=== PATIENT | female | born 1955 | race Caucasian/White ===

== ENCOUNTER 2018-07-24 05:10 | Inpatient (IN) ==
--- NOTE | 2018-06-23 16:22 | PAT Medication Instructions ---
Medication Instructions Date of Service June 23, 2018 Home Medications aspirin [Aspir-81] 81 mg PO QAM citalopram 20 mg PO QAM diclofenac sodium 50 mg PO TID PRN gabapentin 400 mg PO TID rosuvastatin 20 mg PO QPM ASK your surgeon for instructions diclofenac sodium 50 mg PO TID PRN Take morning of surgery With a small sip of water, OTHERWISE NOTHING TO EAT OR DRINK AFTER MIDNIGHT: aspirin [Aspir-81] 81 mg PO QAM citalopram 20 mg PO QAM gabapentin 400 mg PO TID Take evening before surgery gabapentin 400 mg PO TID rosuvastatin 20 mg PO QPM Other Notes If you have any questions please call us at [phone] or [phone] or [phone] or [phone]
--- NOTE | 2018-06-24 12:57 | Anesthesiology Consultation ---
Date of Service June 24, 2018 Assessment & Plan (1) Encounter for pre-operative examination: WITH BACK SURGERY-03/11/18 @ [facility]- RESPIRATORY AND CARDIAC ARREST DURING TRANSFER TO PACU. PER RECORDS, "cardiac arrest with return of spontaneous circulation status post anesthesia. Likely respiratory arrest with resulting cardiac arrest." Troponin x1 negative. CTA showed no evidence of acute PE. Echo within normal limits. " Etiology of cardiac arrest is unspecified. However it is likely respiratory arrest that led to cardiac arrest. Patient may have been extubated too soon in the setting of recent lumbar decompression and fusion at level of L5-S1." PATIENT HAD SUBSEQUENT CARDIAC EVAL 03/24/18: "[Respiratory and cardiac arrest] happened in the setting of immediately postop lumbar spine surgery when she was being taken back to the recovery area. In review of the records her EKG is normal. She also had a normal echo. My suspicion she became hypoxic which caused a severe bradycardia... This was not a primary cardiac event. I think no further cardiac evaluation is required." Chart Review Chart Review: Acceptable Risk for Surgery and Patient seen in Pre Admission Testing Teaching & Discussion Instructed NPO after midnight before surgery, except medications with 15 cc of water. Medication instructions provided according to the PAT guidelines. History Surgery Operation Date: 07/24/18 07:00 Proposed Procedures p Right Total Knee Arthroplasty - Rudi Calderon MD Height/Weight Height: 5 ft 3 in Weight: 99.3 kg Allergies Allergy/AdvReac Type Severity Reaction Status Date / Time No Known Allergies Allergy Verified 06/16/18 13:16 Medications Home Medications Medication Instructions Recorded Confirmed Last Taken aspirin [Aspir-81] 81 mg PO QAM 06/16/18 06/16/18 Unknown citalopram 20 mg PO QAM 06/16/18 06/16/18 Unknown diclofenac sodium 50 mg PO TID PRN 06/16/18 06/16/18 Unknown gabapentin 400 mg PO TID 06/16/18 06/16/18 Unknown rosuvastatin 20 mg PO QPM 06/16/18 06/16/18 Unknown Past Medical History Medical History Anxiety Depression GERD (gastroesophageal reflux disease) Hyperlipidemia Migraine HX Osteoarthritis Pulmonary embolism [id number] ON THINNERS PERIOD OF TIME-NO ISSUES SINCE Exercise / Class Metabolic Activity II 4-5 Yardwork/Stairs/Walk up hill (Denies CP or SOB with stairs, does daily) Past Family History Family History Sister Family history of diabetes mellitus Brother Family history of diabetes mellitus Sister Family history of diabetes mellitus Sister Family history of diabetes mellitus Past Surgical History Surgical History Fusion of spine LUMBAR H/O cervical spine surgery X 2 H/O hand surgery RIGHT THUMB X 2 History of anesthesia reaction WITH BACK SURGERY-03/11/18 [facility]- RESPIRATORY AND CARDIAC ARREST DURING TRANSFER TO PACU. History of carpal tunnel release History of section X 2 History of cholecystectomy History of laparoscopy S/P right knee arthroscopy Past Anesthesia History No Family Hx of Anesthesia Complications and Other WITH BACK SURGERY-03/11/18 [facility]- RESPIRATORY AND CARDIAC ARREST DURING TRANSFER TO PACU. PER RECORDS, " cardiac arrest with return of spontaneous circulation status post anesthesia. Likely respiratory arrest with resulting cardiac arrest." Troponin x1 negative. CTA showed no evidence of acute PE. Echo within normal limits. " Etiology of cardiac arrest is unspecified. However it is likely respiratory arrest that led to cardiac arrest. Patient may have been extubated too soon in the setting of recent lumbar decompression and fusion at level of L5-S1." PATIENT HAD SUBSEQUENT CARDIAC EVAL 03/24/18: "[Respiratory and cardiac arrest] happened in the setting of immediately postop lumbar spine surgery when she was being taken back to the recovery area. In review of the records her EKG is normal. She also had a normal echo. My suspicion she became hypoxic which caused a severe bradycardia... This was not a primary cardiac event. I think no further cardiac evaluation is required." 2013 lumbar sx @ [facility] = MAC 3, ETT 7.5, grade view I. Noted "2 hand mask needed." History of PONV No Hx of PONV and No Hx of Motion Sickness Social History Smoking Status: Current every day smoker tobacco type: cigarettes Smoking cigarettes per day: 1 PACK PER 1.5 wks Do You Dip or Chew Tobacco: No Hx Alcohol Use: No Hx Substance Use: No substance use type: does not use Review of Systems Pt denies any recent chest pain, shortness of breath, palpitations, cough, fever or URI. Physical Exam Vital Signs BP: 131/78 P: 79bpm SPO2: 95% RA T: 98.1 F R: 16 Constitutional + obese ENMT Mouth: no chipped teeth and no loose teeth Thyromental Distance: < 3.5 Finger Breadths (3) Mallampati Class: I Missing all top teeth. Missing all bottom molars. Neck + short neck; neck extension not limited Respiratory normal respiratory effort Auscultation: lungs clear to auscultation bilaterally Cardiovascular Rate/Rhythm: regular rate and regular rhythm Heart Sounds: + murmur (I/ systolic) Vessels: no carotid bruit Extremities: no edema Testing Electrocardiogram Date: 06/24/18 Findings: + NSR @ (76) Chest X-Ray Date: 06/24/18 Findings: + NAD Echocardiogram Date: 03/12/18 EF: 60% Laboratory Results 06/24/18 14:11 06/24/18 14:11 PT 10.9 Seconds (9.0-12.0) 06/24/18 14:11 INR 1.1 (0.9-1.1) 06/24/18 14:11 APTT 29.6 Seconds (21.0-31.0) 06/24/18 14:11 6.2 % (4.5-5.6) H 06/24/18 14:11 Yellow 06/24/18 14:11 Clear (Clear) 06/24/18 14:11 5.0 (4.5-7.5) 06/24/18 14:11 Ur Specific [place] 1.029 (1.000-1.030) 06/24/18 14:11 Negative (Negative) 06/24/18 14:11 Negative (Negative) 06/24/18 14:11 Negative (Negative) 06/24/18 14:11 Negative (Negative) 06/24/18 14:11 Ur Leukocyte Esterase Negative (Negative) 06/24/18 14:11 Blood Type O Negative 06/24/18 14:11 Antibody Screen NEGATIVE 06/24/18 14:11 Headers for A1C and some UA results not pulling into document. A1C 6.2%. UA negative for bacteria.
[2018-06-24 14:42] LABS: Appearance Urine Clear (Clear); Basophils # (auto) 0.04 K/uL (0-0.2); Basophils % (auto) 0.4 %; Bilirubin Urine Negative (Negative); Blood Urine Negative (Negative); Color Urine Yellow; Eosinophils # (auto) 0.12 K/uL (0-0.5); Eosinophils % (auto) 1.1 %; Glucose Urine UA Negative (Negative); Hematocrit (blood only) 36.8 % (37-47); Hemoglobin 12.2 g/dL (12.0-16.0); Immature Granulocytes # (auto) 0.03 K/uL (0.00-0.02); Immature Granulocytes % (auto) 0.3 %; Ketones Urine Negative (Negative); Leukocyte Esterase Urine Negative (Negative); Lymphocytes # (auto) 2.81 K/uL (1.2-3.4); Lymphocytes % (auto) 26.6 %; Mean Corpuscular Hgb Conc 33.2 g/dL (32-36); Mean Corpuscular Volume 80.2 fL (80-100); Mean Platelet Volume 9.4 fL (7.4-10.4); Monocytes # (auto) 0.47 K/uL (0.11-0.59); Monocytes % (auto) 4.5 %; Neutrophils # (auto) 7.09 K/uL (1.4-6.5); Neutrophils % (auto) 67.1 %; Nitrite Urine Negative (Negative); Platelet Count 424 K/uL (130-400); Protein Urine Negative (Negative); RDW Coefficient of Variation 15.2 % (11.5-14.5); RDW Standard Deviation 44.6 fL (36.4-46.3); Red Blood Count 4.59 M/uL (4.2-5.4); Specific Gravity Urine 1.029 (1.000-1.030); Urobilinogen Urine Negative (Negative); White Blood Count 10.56 K/uL (4.8-10.8)
--- NOTE | 2018-06-24 14:50 | XRay Report ---
XR chest Pre-admission PA/Lat CLINICAL HISTORY: 62 years-old Female presenting with preoperative assessment. TECHNIQUE: PA and lateral views of the chest were obtained. COMPARISON: 07/12/2013. FINDINGS: Cardiomediastinal silhouette normal. Lungs and pleural spaces clear. Anterior cervical fusion hardwar e. Cholecystectomy clips noted. IMPRESSION: 1. No acute cardiopulmonary disease. Electronically signed by: Rudi Calero M.D. 06/24/2018 2:49 PM
[2018-06-24 14:55] LABS: INR 1.1 (0.9-1.1); Partial Thromboplastin Ratio 1.1; Partial Thromboplastin Time 29.6 Seconds (21.0-31.0); Prothrombin Time 10.9 Seconds (9.0-12.0)
[2018-06-24 15:03] LABS: Estimated Average Glucose 131 mg/dl; Hemoglobin A1C 6.2 % (4.5-5.6)
[2018-06-24 15:35] LABS: Albumin Level 3.5 gm/dl (3.4-5.0); BUN Creatinine Ratio 24.5 (10-20); Calcium 9.4 mg/dl (8.5-10.1); Creatinine Clr Calc Pharmacy 103.4 ml/min; Est GFR (African American) 111.8; Est GFR (Non-African American) 96.5; Potassium 3.9 mmol/L (3.5-5.1)
--- NOTE | 2018-07-14 13:13 | History & Physical Report ---
Date of Service July 14, 2018 Assessment & Plan (1) Primary localized osteoarthritis of right knee: Treatment options were discussed with the patient. She has failed conservative measures as above. Risks, benefits and alternatives to surgery including but not limited to infection, DVT, pain, stiffness, need for revision surgery, damage to blood vessels, damage to nerves, PE, , were discussed with the patient and they wish to proceed. Insert my surgical risks plan will be for right total knee arthroplasty. She plans on going home and will participate in outpatient physical therapy upon discharge from the hospital. DVT prophylaxis will be aspirin 81 mg twice daily for 30 days postoperatively. All questions were answered and reassurance was given. She will follow-up in the office postoperatively. History of Present Illness Chief Complaint: Right knee pain Primary Care Provider: Alex Negro DO Patient is a 62-year-old female past medical history significant for high cholesterol, anxiety, PE, GERD who presents with a long-standing history of right knee pain. She has tried and failed conservative measures including c ortisone injections, Visco injections, and anti-inflammatory medications.Her pain is starting to interfere with her activities of daily living and she is unable to do think she would like to do. She would like to proceed with right knee replacement. Patient denies headaches, sweats, fevers, chills, double vision, blurred vision, cough, sore throat, dysphagia, chest pain, sob, wheezing, n/v/d/c, numbness, tingling, fatigue, urinary symptoms, mood disorders. ROS positive for Right pain and stiffness. Allergies Allergy/AdvReac Type Severity Reaction Status Date / Time No Known Allergies Allergy Verified 06/16/18 13:16 Home Medications Home Medications Medication Instructions Recorded Confirmed Type aspirin [Aspir-81] 81 mg PO QAM 06/16/18 06/16/18 History citalopram 20 mg PO QAM 06/16/18 06/16/18 History diclofenac sodium 50 mg PO TID PRN 06/16/18 06/16/18 History gabapentin 400 mg PO TID 06/16/18 06/16/18 History rosuvastatin 20 mg PO QPM 06/16/18 06/16/18 History Past Med/Surg History Medical History Anxiety Depression GERD (gastroesophageal reflux disease) Hyperlipidemia Migraine HX Osteoarthritis Pulmonary embolism [id number] ON THINNERS PERIOD OF TIME-NO ISSUES SINCE Surgical History Fusion of spine LUMBAR H/O cervical spine surgery X 2 H/O hand surgery RIGHT THUMB X 2 History of anesthesia reaction WITH BACK SURGERY-03/11/18 [facility]- RESPIRATORY AND CARDIAC ARREST DURING TRANSFER TO PACU. 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 Beliefs That Will Affect Care: None Current Living Situation: Significant Other Other Information That Helps Us Care for You: No Feels Safe at Home: Yes Safety Concerns: Feels Safe At This Time Smoking Status: Current every day smoker Tobacco Type: cigarettes Cigarettes Per Day: 1 PACK PER 1.5 wks Do You Dip or Chew Tobacco: No Second Hand Exposure: No Hx Alcohol Use: No Hx Substance Use: No Review of Systems All systems reviewed & are unremarkable except as noted in HPI & below Physical Exam Constitutional: well developed and well nourished; no acute distress Eyes: PERRL, conjunctivae normal, anicteric sclerae ENMT: external ear and nose normal, oropharynx normal Neck: trachea midline, no thyromegaly Respiratory: normal respiratory effort, lungs clear to auscultation Cardiovascular: RRR, no murmur, no edema Musculoskeletal: My ROS right knee is diffusely tender. There is a moderate effusion. She is stable to valgus varus stress test. Nigel's is positive. Range of motion is 0 to 110 degrees. Skin: no rashes, warm and dry Neurologic: patellar DTR's 2+ bilat, sensation intact Psychiatric: A+Ox3, euthymic affect Results & Data Laboratory Results Lab Results 06/24/18 06/24/18 06/24/18 Range/Units 14:11 14:11 14:11 WBC 10.56 (4.8-10.8) K/uL RBC 4.59 (4.2-5.4) M/uL Hgb 12.2 (12.0-16.0) g/dL Hct 36.8 L (37-47) % MCV 80.2 (80-100) fL MCH 26.6 (25-34) pg MCHC 33.2 (32-36) g/dL RDW Std Deviation 44.6 (36.4-46.3) fL RDW Coeff of Yari 15.2 H (11.5-14.5) % Plt Count 424 H (130-400) K/uL MPV 9.4 (7.4-10.4) fL Immature Gran % (Auto) 0.3 % Neut % (Auto) 67.1 % Lymph % (Auto) 26.6 % Karnes % (Auto) 4.5 % Eos % (Auto) 1.1 % Baso % (Auto) 0.4 % Immature Gran # (Auto) 0.03 H (0.00-0.02) K/uL Neut # (Auto) 7.09 H (1.4-6.5) K/uL Lymph # (Auto) 2.81 (1.2-3.4) K/uL Karnes # (Auto) 0.47 (0.11-0.59) K/uL Eos # (Auto) 0.12 (0-0.5) K/uL Baso # (Auto) 0.04 (0-0.2) K/uL PT 10.9 (9.0-12.0) Seconds INR 1.1 (0.9-1.1) APTT 29.6 (21.0-31.0) Seconds PTT Ratio 1.1 Sodium 142 (136-145) mmol/L Potassium 3.9 (3.5-5.1) mmol/L Chloride 108 H (98-107) mmol/L Carbon Dioxide 28 (21-32) mmol/L Anion Gap 6.0 (3-11) BUN 16 (7-18) mg/dl Creatinine 0.65 (0.6-1.2) mg/dl Est Cr Clr Drug Dosing 103.4 ml/min Est GFR ( Amer) 111.8 Est GFR (Non-Af Amer) 96.5 BUN/Creatinine Ratio 24.5 H (10-20) Glucose 119 H (70-99) mg/dl Estimat Average Glucose mg/dl Hemoglobin A1c (4.5-5.6) % Calcium 9.4 (8.5-10.1) mg/dl Albumin 3.5 (3.4-5.0) gm/dl Urine Color Urine Appearance (Clear) Urine pH (4.5-7.5) Ur Specific [place] (1.000-1.030) Urine Protein (Negative) Urine Glucose (UA) (Negative) Urine Ketones (Negative) Urine Blood (Negative) Urine Nitrite (Negative) Urine Bilirubin (Negative) Urine Urobilinogen (Negative) Ur Leukocyte Esterase (Negative) Blood Type Antibody Screen 06/24/18 06/24/18 06/24/18 Range/Units 14:11 14:11 14:11 WBC (4.8-10.8) K/uL RBC (4.2-5.4) M/uL Hgb (12.0-16.0) g/dL Hct (37-47) % MCV (80-100) fL MCH (25-34) pg MCHC (32-36) g/dL RDW Std Deviation (36.4-46.3) fL RDW Coeff of Yari (11.5-14.5) % Plt Count (130-400) K/uL MPV (7.4-10.4) fL Immature Gran % (Auto) % Neut % (Auto) % Lymph % (Auto) % [place] % (Auto) % Eos % (Auto) % Baso % (Auto) % Immature Gran # (Auto) (0.00-0.02) K/uL Neut # (Auto) (1.4-6.5) K/uL Lymph # (Auto) (1.2-3.4) K/uL [place] # (Auto) (0.11-0.59) K/uL Eos # (Auto) (0-0.5) K/uL Baso # (Auto) (0-0.2) K/uL PT (9.0-12.0) Seconds INR (0.9-1.1) APTT (21.0-31.0) Seconds PTT Ratio Sodium (136-145) mmol/L Potassium (3.5-5.1) mmol/L Chloride (98-107) mmol/L Carbon Dioxide (21-32) mmol/L Anion Gap (3-11) BUN (7-18) mg/dl Creatinine (0.6-1.2) mg/dl Est Cr Clr Drug Dosing ml/min Est GFR ( Amer) Est GFR (Non-Af Amer) BUN/Creatinine Ratio (10-20) Glucose (70-99) mg/dl Estimat Average Glucose 131 mg/dl Hemoglobin A1c 6.2 H (4.5-5.6) % Calcium (8.5-10.1) mg/dl Albumin (3.4-5.0) gm/dl Urine Color Yellow Urine Appearance Clear (Clear) Urine pH 5.0 (4.5-7.5) Ur Specific [place] 1.029 (1.000-1.030) Urine Protein Negative (Negative) Urine Glucose (UA) Negative (Negative) Urine Ketones Negative (Negative) Urine Blood Negative (Negative) Urine Nitrite Negative (Negative) Urine Bilirubin Negative (Negative) Urine Urobilinogen Negative (Negative) Ur Leukocyte Esterase Negative (Negative) Blood Type O Negative Antibody Screen NEGATIVE Diagnostic Findings Right knee: [id number] medial compartment with periarticular osteophyte formation and subchondral sclerosis
[~2018-07-24 05:10] MED LIST: [UNRECOGNIZED DRUG - REMARK] SCH
[2018-07-24] MEDS ORDERED: ROPIVACAINE 0.5% HCL/PF 150 MG, BUPIVACAINE 0.5% MPF 30 ML, EPINEPHrine 30MG/30ML (OR U... INFIL SCH (06:00)
[2018-07-24] MEDS ORDERED: LR 500ML BOLUS, THEN 15ML/HR IV SCH (06:00)
[2018-07-24] MEDS ORDERED: ACETAMINOPHEN 500 MG TAB ONE (06:07)
[2018-07-24] MEDS ORDERED: CeleBREX 200 MG CAP ONE (06:07)
[2018-07-24] MEDS ORDERED: dexAMETHasone 4 MG TAB PO ONE (06:07)
[2018-07-24] MEDS ORDERED: METOCLOPRAMIDE HCL 10 MG TABLET ONE (06:08)
[2018-07-24] MEDS ORDERED: FAMOTIDINE 20 MG TAB ONE (06:08)
[2018-07-24] MEDS ORDERED: CEFAZOLIN 2,000 MG/15 ML IV PUSH IV ONE (06:09)
[2018-07-24] MEDS ORDERED: OXYCODONE HCL 10 MG TABCR (OXYCONTIN) ONE (06:09)
[2018-07-24] MEDS ORDERED: EPINEPHrine INJ 1 MG/ML AMP ONE (06:31)
[2018-07-24] MEDS ORDERED: BUPIVACAINE 0.5 % 5 MG/1 ML PF 10ML VIAL ONE (06:31)
[2018-07-24] MEDS ORDERED: ROPIVACAINE 0.5% 5 MG/ML 30 ML VIAL ONE (06:31)
--- NOTE | 2018-07-24 06:38 | History & Physical Bridge Note ---
Date of Service July 24, 2018 History & Physical Bridge Note I have examined the patient, reviewed the History & Physical and in the interval since the performance of the History & Physical I have noted the following changes of clinical significance: no changes noted
[2018-07-24] MEDS ORDERED: ONDANSETRON INJ 2 MG/ML 2 ML VIAL ONE (06:43)
[2018-07-24] MEDS ORDERED: fentaNYL citrate 100 MCG/2 ML VIAL ONE (06:43)
[2018-07-24] MEDS ORDERED: PROPOFOL IV EMULSION 10 MG/ML 20 ML VIAL IV ONE ×2 (06:43→09:23)
[2018-07-24] MEDS ORDERED: LIDOCAINE 2% 20 MG/ML 5 ML SYR IV ONE (06:43)
[2018-07-24] MEDS ORDERED: DEXAMETHASONE SOD INJ 4 MG/ML VIAL ONE (06:44)
[2018-07-24] MEDS ORDERED: MIDAZOLAM HCL 1 MG/ML 2ML VIAL ONE (06:44)
[2018-07-24] MEDS ORDERED: BACITRACIN INJ 50,000 UNIT VIAL ONE (07:04)
[2018-07-24] MEDS ORDERED: ePHEDrine sulfate 50 MG/ML AMP IV PRN (08:44)
[2018-07-24] MEDS ORDERED: ATROPINE SULFATE 0.1 MG/ML 10ML SYR IV PRN (08:44)
[2018-07-24] MEDS ORDERED: POVIDONE-IODINE 10% OINT 30 GM TUBE EXT SCH (08:45)
--- NOTE | 2018-07-24 09:09 | Operative Report ---
Post Operative Report Pre & Post Diagnosis Operation Date: 07/24/18 07:45 Pre-Op Diagnosis: Osteoarthritis, Right Knee Post-Op Diagnosis: Osteoarthritis, Right Knee Procedure Operation Date: 07/24/18 07:45 Actual Procedures p Right Total Knee Arthroplasty(Right) - Rudi Calderon MD Surgeon Rudi Calderon MD Environmental Health Aide Manolo Aguilar PA-C Estimated Blood Loss 20 Findings Consistent with Post-Op Diagnosis Specimens Bone and tissue Drains 2 Hemovac Anesthesia Type Spinal MAC Complications none Disposition Accompanied Patient To Recovery: No Disposition: Recovery Room Indications The patient is a 62-year-old female long-standing arthritic change of the right knee. She is [id number] in the medial compartment. She is failed conservative measures occluding injection, anti-inflammatories, rehab. She has had persistent effusions in the knee. She previously has had aspiration of the knee and cultures were negative. Failing conservative measures she wishes to proceed with a right total knee arthroplasty. Description of Procedure Risks benefits and alternatives of surgery including but not limited to infection, DVT, pain, stiffness, need for surgery, damage to blood vessels, damage to nerves or risks of anesthesia were discussed with the patient and they wished to proceed. The patient was identified and the laterality was confirmed and marked. They received a preoperative antibiotic as well as a spinal anesthetic and an abductor canal block. A well-padded tourniquet was applied and then the limb was prepped and draped in standard manner with ChloraPrep. The limb was exsanguinated and the tourniquet was inflated. I made a standard anterior incision. I sharply incised the skin then utilized Bovie electrocautery to achieve hemostasis. I made a medial parapatellar arthrotomy and mobilized the patella laterally. There is a fair amount of inflammatory tissue in the suprapatellar pouch that was excised. I did an extensive synovectomy proximally. I then excised the anterior horns of the medial and lateral meniscus as well as the infrapatellar fat pad. I elevated a portion of the MCL off of the tibia. I then pinned into place a patient-matched distal femoral cutting guide and made my distal femoral resection. I then pinned into place the 5 in 1 femoral cutting guide. I made my anterior, posterior and chamfer cuts. I then excised the cruciates and the remaining portions of the menisci. I then pinned into place a patient- matched tibial cutting guide and made my tibial resection. I then pinned into place the tibial plate a utilizing alignment carlos to confirm rotation. I then cut for the post. Utilizing a lamina web solutions architect and I then removed posterior osteophytes off the femur. I then placed a trial femur into position and cut for the trochlear component. I then sequentially trialed to size the polyethylene until there was good soft tissue balancing and range of motion. I then prepared the patella with a freehand cut utilizing sagittal saw. I sized and drilled for the patella. There was good tracking to the patella no lateral release was needed. All the trial components were removed. The deep tissues were anesthetized with an ortho mix solution. Then with Simplex HV with gentamicin cement, I cemented my definitive components. Definitive components, Monterroso and Nephew Danelle 2: Femur 5 Tibia 4 Poly 9 Patella 32 oval A betadine soak was performed. A deep drain was placed. The arthrotomy was closed with interrupted #1 Vicryl suture subcutaneous tissue was closed with interrupted 2-0 Vicryl suture. The skin was closed with with billy. An Acticoat and Bay dressing were placed. Sterile dressings were applied. All needle and sponge counts were correct at the end of the procedure patient was transferred to the PACU in stable condition without apparent complication. The PA-C was necessary for assistance with procedure for assistance in positioning, prepping, draping, retraction and closure. I attest to the content of the Intraoperative Record and any orders documented therein. Any exceptions are noted below.
--- NOTE | 2018-07-24 10:37 | XRay Report ---
RIGHT KNEE 2 VIEWS History: Right total knee arthroplasty. Degenerative arthritis. Postop. FINDINGS: The patient is status post a right total knee arthroplasty. The hardware is intact. No frac ture or dislocation. Skin billy and surgical drains are in place. IMPRESSION: Right total knee arthroplasty. No evidence for hardware complication. Electronically signed by: Cj Tavares M.D. 07/24/2018 10:36 AM
--- NOTE | 2018-07-24 10:49 | Anesthesiology Progress Note ---
Date of Service July 24, 2018 Anesthesia Post Procedure Vital Signs Vital Signs: Temp Pulse Pulse Resp BP Pulse Ox 07/24/18 10:35 36.4 C L 72 15 108/68 96 07/24/18 10:25 83 19 119/68 95 07/24/18 10:15 88 22 123/62 97 07/24/18 10:07 36.0 C L 89 17 110/61 91 07/24/18 05:52 36.8 C 72 18 125/54 L 96 Transfer of Care Handoff Completed per policy Notes Mental Status: alert / awake / arousable Patient Amnestic to Procedure: Yes Nausea / Vomiting: adequately controlled Pain: adequately controlled Airway Patency, RR, SpO2: stable & adequate BP & HR: stable & adequate Hydration State: stable & adequate Neuraxial Anesthesia: was administered and sensory block is resolving Anesthetic Complications: no major complications apparent
[2018-07-24] MEDS ORDERED: NALOXONE HCL 0.4 MG/1 ML VIAL/CARP IV PRN (11:14)
[2018-07-24] MEDS ORDERED: ONDANSETRON INJ 2 MG/ML 2 ML VIAL IV PRN (11:14)
[2018-07-24] MEDS ORDERED: BISACODYL 10 MG SUPP PR PRN (11:14)
[2018-07-24] MEDS ORDERED: MAGNESIUM HYDROXIDE SUSP 30 ML UDC PO PRN (11:14)
[2018-07-24] MEDS: SODIUM CHLORIDE 0.9% 1000ML 1,000 ML IV SCH ×2 (12:41→22:58)
[2018-07-24] MEDS: GABAPENTIN 400 MG CAP PO SCH ×2 (12:41→21:25)
[2018-07-24] MEDS: ACETAMINOPHEN 500 MG TAB PO SCH ×2 (12:41→21:25)
[2018-07-24] MEDS: OXYCODONE HCL IR 5 MG TAB (IMMEDIATE RELEASE) PO PRN ×3 (14:10→22:53)
[2018-07-24] MEDS: CEFAZOLIN 2000MG 2,000 MG/15 ML SYR IV SCH ×2 (17:28→22:55)
[2018-07-24] MEDS: ROSUVASTATIN CALCIUM 20 MG TAB PO SCH (21:25)
[2018-07-24] MEDS: SENNA 8.6 MG TAB PO SCH (21:25)
[2018-07-24] MEDS: DOCUSATE SODIUM 100 MG CAP PO SCH (21:25)
[2018-07-25] MEDS: HYDROmorphone INJ 0.5 MG/0.5 ML SYR IV PRN ×3 (00:31→18:16)
[2018-07-25] MEDS: ACETAMINOPHEN 500 MG TAB PO SCH ×3 (05:17→21:45)
[2018-07-25] MEDS: OXYCODONE HCL IR 5 MG TAB (IMMEDIATE RELEASE) PO PRN ×3 (05:17→15:16)
[2018-07-25 05:29] LABS: Hematocrit (blood only) 32.4 % (37-47); Hemoglobin 10.4 g/dL (12.0-16.0); Mean Corpuscular Hgb Conc 32.1 g/dL (32-36); Mean Corpuscular Volume 78.6 fL (80-100); Mean Platelet Volume 9.4 fL (7.4-10.4); Platelet Count 414 K/uL (130-400); RDW Coefficient of Variation 15.5 % (11.5-14.5); RDW Standard Deviation 44.6 fL (36.4-46.3); Red Blood Count 4.12 M/uL (4.2-5.4); White Blood Count 14.81 K/uL (4.8-10.8)
[2018-07-25 05:48] LABS: Alanine Aminotransferase 52 U/L (12-78); Albumin Level 3.1 gm/dl (3.4-5.0); Aspartate Aminotransferase 29 U/L (15-37); Bilirubin Direct < 0.1 mg/dl (0-0.2); Blood Urea Nitrogen 17 mg/dl (7-18); Carbon Dioxide 27 mmol/L (21-32); Chloride 106 mmol/L (98-107); Creatinine Clr Calc Pharmacy 86.3 ml/min; Est GFR (African American) 97.3; Est GFR (Non-African American) 83.9; Glucose 163 mg/dl (70-99); Potassium 4.5 mmol/L (3.5-5.1); Sodium 139 mmol/L (136-145)
[2018-07-25 05:51] LABS: Alkaline Phosphatase 128 U/L (45-117); Bilirubin,Total 0.2 mg/dl (0.2-1); Total Protein 7.3 gm/dl (6.4-8.2)
--- NOTE | 2018-07-25 07:58 | Orthopedic Progress Note ---
Date of Service July 25, 2018 Assessment & Plan (1) Primary localized osteoarthritis of right knee: POD #1 Right TKA PT/ OT DVT proph- Xarelto D/C planning- Home w OPPT Subjective POD #1, doing well. Denies SOB, CP, N/V. Pain controlled well. No Dizziness. BP's running low this AM, but not the trend. Physical Exam Physical Exam: Right knee dressings c/d/i, no drainage. Toes and ankle mobile. No calf tenderness. A&Ox3. Results & Data Vital Signs (Past 12 Hours) Vital Signs Temp Pulse Resp BP Pulse Ox 07/25/18 07:09 36.4 C L 57 L 18 101/59 L 93 07/25/18 02:45 36.7 C 62 16 107/63 98 07/24/18 23:16 36.8 C 59 L 20 133/62 96
[2018-07-25] MEDS: MULTIVITAMIN TAB PO SCH (08:21)
[2018-07-25] MEDS: RIVAROXABAN 10 MG TABLET PO SCH (08:21)
[2018-07-25] MEDS: GABAPENTIN 400 MG CAP PO SCH ×3 (08:22→20:34)
[2018-07-25] MEDS: DOCUSATE SODIUM 100 MG CAP PO SCH ×2 (08:22→20:34)
[2018-07-25] MEDS: SENNA 8.6 MG TAB PO SCH (20:35)
[2018-07-25] MEDS: ROSUVASTATIN CALCIUM 20 MG TAB PO SCH (20:35)
[2018-07-26] MEDS: HYDROmorphone INJ 0.5 MG/0.5 ML SYR IV PRN (00:24)
[2018-07-26] MEDS: OXYCODONE HCL IR 5 MG TAB (IMMEDIATE RELEASE) PO PRN ×5 (03:29→20:15)
[2018-07-26] MEDS: ACETAMINOPHEN 500 MG TAB PO SCH ×3 (06:33→21:00)
--- NOTE | 2018-07-26 08:27 | Orthopedic Progress Note ---
Date of Service July 26, 2018 Assessment & Plan (1) Primary localized osteoarthritis of right knee: POD #2 Right TKA PT/ OT DVT proph- Xarelto D/C planning- Home w OPPT when stabble Will check doppler to r/o DVT right LE Will keep her another day for pain control. Subjective POD #2 states she got hot, dizzy and sick in the bathroom this AM, she did vomit, BP's running low. Patient states pain and swelling still hindering her PT. Physical Exam Physical Exam: Right knee wound vac in place, no erythema. + calf tenderness, +homans. Toes and ankle mobile. A&Ox3. Results & Data Vital Signs (Past 12 Hours) Vital Signs Temp Pulse Resp BP BP Pulse Ox 07/26/18 07:40 54 L 99/54 L 108/67 97 07/26/18 07:03 36.6 C 64 18 111/65 93 07/26/18 00:04 36.7 C 78 18 111/62 96
[2018-07-26] MEDS: DOCUSATE SODIUM 100 MG CAP PO SCH ×2 (08:33→20:15)
[2018-07-26] MEDS: GABAPENTIN 400 MG CAP PO SCH ×3 (08:33→20:15)
[2018-07-26] MEDS: RIVAROXABAN 10 MG TABLET PO SCH (08:33)
[2018-07-26] MEDS: MULTIVITAMIN TAB PO SCH (08:33)
--- NOTE | 2018-07-26 09:26 | Ultrasound Report ---
RIGHT LOWER EXTREMITY VENOUS DOPPLER CLINICAL HISTORY: Calf tenderness and swelling RULE OUT DVT. COMPARISON STUDY: No previous studies for comparison. TECHNIQUE: Sonography of the deep venous system of the right lower extremity was performed. Compress ion and augmentation were evaluated. FINDINGS: The right common femoral, superficial femoral and popliteal veins were compressible. Augme ntation was normal. Flow was shown within the deep calf vessels. IMPRESSION: No evidence of deep venous thrombus within the right lower extremity. Electronically signed by: Parveen Espinoza M.D. 07/26/2018 9:23 AM
[2018-07-26] MEDS: SENNA 8.6 MG TAB PO SCH (20:16)
[2018-07-26] MEDS: ROSUVASTATIN CALCIUM 20 MG TAB PO SCH (20:16)
[2018-07-27] MEDS: OXYCODONE HCL IR 5 MG TAB (IMMEDIATE RELEASE) PO PRN ×4 (01:26→22:22)
[2018-07-27] MEDS: ACETAMINOPHEN 500 MG TAB PO SCH ×3 (05:51→20:45)
--- NOTE | 2018-07-27 07:18 | Orthopedic Progress Note ---
Date of Service July 27, 2018 Assessment & Plan (1) Primary localized osteoarthritis of right knee: POD #3 Right TKA PT/ OT DVT proph- Xarelto D/C planning- Home w OPPT when stabble Doppler negative for DVT Pain management-will add Oxycontin. Will remove the SHWETA as patient states she is getting a lot of irritation from the adhesive and place dry dressing Discharge possibly later today, if not tomorrow when pain is better controlled. Subjective POD #3 Feeling a little better than yesterday, still having quite a bit of pain. States the tape from the SHWETA is really irritating her. Patient states pain and swelling still hindering her PT. No other complaints. No dizziness, chest pain, sob. Review of Systems Review of Systems: All systems reviewed & are unremarkable except as noted in HPI & below Physical Exam Physical Exam: Dressing c/d/i, knee swollen. Calves soft, non tender. No erythema. Results & Data Vital Signs (Past 12 Hours) Vital Signs Temp Pulse Resp BP BP Pulse Ox 07/27/18 06:49 36.8 C 84 18 112/68 93 07/26/18 23:25 36.7 C 78 16 97/60 L 93
[2018-07-27] MEDS: DOCUSATE SODIUM 100 MG CAP PO SCH ×2 (07:35→20:44)
[2018-07-27] MEDS: OXYCODONE HCL 10 MG TABCR (OXYCONTIN) PO SCH ×2 (07:35→20:43)
[2018-07-27] MEDS: RIVAROXABAN 10 MG TABLET PO SCH (07:36)
[2018-07-27] MEDS: MULTIVITAMIN TAB PO SCH (07:36)
[2018-07-27] MEDS: GABAPENTIN 400 MG CAP PO SCH ×3 (07:36→20:45)
[2018-07-27] MEDS: CITALOPRAM 20 MG TAB PO SCH (08:40)
[2018-07-27] MEDS ORDERED: KETOROLAC TROMETHAMINE 15 MG/ML VIAL IV STA (09:01)
[2018-07-27] MEDS: SENNA 8.6 MG TAB PO SCH (20:44)
[2018-07-27] MEDS: ROSUVASTATIN CALCIUM 20 MG TAB PO SCH (20:44)
[2018-07-28] MEDS: OXYCODONE HCL IR 5 MG TAB (IMMEDIATE RELEASE) PO PRN ×3 (02:12→15:20)
[2018-07-28] MEDS: HYDROmorphone INJ 0.5 MG/0.5 ML SYR IV PRN ×2 (03:24→03:43)
[2018-07-28] MEDS: ACETAMINOPHEN 500 MG TAB PO SCH ×2 (06:16→13:36)
--- NOTE | 2018-07-28 07:28 | Orthopedic Progress Note ---
Date of Service July 28, 2018 Assessment & Plan (1) Primary localized osteoarthritis of right knee: POD #4 Right TKA PT/ OT DVT proph- Xarelto D/C planning- Home w OPPT when stabble Doppler negative for DVT Pain management-will add Oxycontin. Discharge later today after PT Subjective POD #4 Feeling a little better than yesterday, still having quite a bit of pain. Feels better with SHWETA off. No other complaints. No dizziness, chest pain, sob. Review of Systems Review of Systems: All systems reviewed & are unremarkable except as noted in HPI & below Physical Exam Physical Exam: Incision well approximated, c/d/i. No erythema or drainage. calves are soft and non tender. Toes are mobile. Sensation and n/v status intact. Results & Data Vital Signs (Past 12 Hours) Vital Signs Temp Pulse Resp BP Pulse Ox 07/27/18 22:48 36.6 C 74 20 133/74 96
[2018-07-28] MEDS: OXYCODONE HCL 10 MG TABCR (OXYCONTIN) PO SCH (07:52)
[2018-07-28] MEDS: DOCUSATE SODIUM 100 MG CAP PO SCH (08:36)
[2018-07-28] MEDS: CITALOPRAM 20 MG TAB PO SCH (08:36)
[2018-07-28] MEDS: RIVAROXABAN 10 MG TABLET PO SCH (08:37)
[2018-07-28] MEDS: MULTIVITAMIN TAB PO SCH (08:37)
[2018-07-28] MEDS: GABAPENTIN 400 MG CAP PO SCH ×2 (08:37→13:36)
--- NOTE | 2018-07-28 16:32 | Discharge Summary ---
Date of Service July 28, 2018 Admission HPI Per Admitting Provider Patient is a 62-year-old female past medical history significant for high cholesterol, anxiety, PE, GERD who presents with a long-standing history of right knee pain. She has tried and failed conservative measures including cortisone injections, Visco injections, and anti-inflammatory medications.Her pain is starting to interfere with her activities of daily living and she is unable to do think she would like to do. She would like to proceed with right knee replacement. Patient denies headaches, sweats, fevers, chills, double vision, blurred vision, cough, sore throat, dysphagia, chest pain, sob, wheezing, n/v/d/c, numbness, tingling, fatigue, urinary symptoms, mood disorders. ROS positive for Right pain and stiffness. Admission Exam Per Admitting Provider Constitutional: well developed and well nourished; no acute distress Eyes: PERRL, conjunctivae normal, anicteric sclerae ENMT: external ear and nose normal, oropharynx normal Neck: trachea midline, no thyromegaly Respiratory: normal respiratory effort, lungs clear to auscultation Cardiovascular: RRR, no murmur, no edema Musculoskeletal: My ROS right knee is diffusely tender. There is a moderate effusion. She is stable to valgus varus stress test. Nigel's is positive. Range of motion is 0 to 110 degrees. Skin: no rashes, warm and dry Neurologic: patellar DTR's 2+ bilat, sensation intact Psychiatric: A+Ox3, euthymic affect Principal Diagnosis Right knee osteoarthritis Discharge Exam Constitutional well developed and well nourished; no acute distress Eyes PERRL, conjunctivae normal, anicteric sclerae ENMT external ear and nose normal, oropharynx normal Neck trachea midline, no thyromegaly Respiratory normal respiratory effort, lungs clear to auscultation Cardiovascular RRR, no murmur, no edema Skin no rashes, warm and dry Neurologic patellar DTR's 2+ bilat, sensation intact Psychiatric A+Ox3, euthymic affect Discharge Data Allergies Allergy/AdvReac Type Severity Reaction Status Date / Time No Known Allergies Allergy Verified 07/24/18 05:36 Consultations 07/24/18 11:14 Consult Case Management - Discharge Planning Routine Procedures Performed Operation Date: 07/24/18 07:45 Actual Procedures p Right Total Knee Arthroplasty(Right) - Rudi Calderon MD Ordered Studies 07/24/18 05:00 US - OR guided needle placemen Routine 07/26/18 08:27 US venous doppler LE RT Stat Hospital Course (1) Primary localized osteoarthritis of right knee: Patient presented for same day admission following right total knee arthroplasty on 07/24/18. She tolerated procedure well. Post-operatively, her activity was progressed and well tolerated. They participated in PT with ambulation distance of 250 feet. ROM of operative knee reached 70 degrees. Labs remained stable- lowest hemoglobin recorded: 10.4. Patient had difficulty managing her post operative pain. On POD#2 patient had an episode of nausea and dizziness, this quickly resolved and had no problems since. On POD# Oxycontin was added and patient received dose of Toradol. Her pain was better controlled with these additions. Please refer to daily progress notes and PT notes for complete details. After exam on 07/28/18 patient was felt to be stable for discharge home with plans to attend outpatient PT. Patient will f/u in the office in about 2 weeks for further evaluation including x-rays and incision check, sooner if having any issues or concerns. Lab Results 06/24/18 06/24/18 06/24/18 Range/Units 14:11 14:11 14:11 WBC 10.56 (4.8-10.8) K/uL RBC 4.59 (4.2-5.4) M/uL Hgb 12.2 (12.0-16.0) g/dL Hct 36.8 L (37-47) % MCV 80.2 (80-100) fL MCH 26.6 (25-34) pg MCHC 33.2 (32-36) g/dL RDW Std Deviation 44.6 (36.4-46.3) fL RDW Coeff of Yari 15.2 H (11.5-14.5) % Plt Count 424 H (130-400) K/uL MPV 9.4 (7.4-10.4) fL Immature Gran % (Auto) 0.3 % Neut % (Auto) 67.1 % Lymph % (Auto) 26.6 % [place] % (Auto) 4.5 % Eos % (Auto) 1.1 % Baso % (Auto) 0.4 % Immature Gran # (Auto) 0.03 H (0.00-0.02) K/uL Neut # (Auto) 7.09 H (1.4-6.5) K/uL Lymph # (Auto) 2.81 (1.2-3.4) K/uL [place] # (Auto) 0.47 (0.11-0.59) K/uL Eos # (Auto) 0.12 (0-0.5) K/uL Baso # (Auto) 0.04 (0-0.2) K/uL PT 10.9 (9.0-12.0) Seconds INR 1.1 (0.9-1.1) APTT 29.6 (21.0-31.0) Seconds PTT Ratio 1.1 Sodium 142 (136-145) mmol/L Potassium 3.9 (3.5-5.1) mmol/L Chloride 108 H (98-107) mmol/L Carbon Dioxide 28 (21-32) mmol/L Anion Gap 6.0 (3-11) BUN 16 (7-18) mg/dl Creatinine 0.65 (0.6-1.2) mg/dl Est Cr Clr Drug Dosing 103.4 ml/min Est GFR ( Amer) 111.8 Est GFR (Non-Af Amer) 96.5 BUN/Creatinine Ratio 24.5 H (10-20) Glucose 119 H (70-99) mg/dl Estimat Average Glucose mg/dl Hemoglobin A1c (4.5-5.6) % Calcium 9.4 (8.5-10.1) mg/dl Total Bilirubin (0.2-1) mg/dl Direct Bilirubin (0-0.2) mg/dl AST (15-37) U/L ALT (12-78) U/L Alkaline Phosphatase (45-117) U/L Total Protein (6.4-8.2) gm/dl Albumin 3.5 (3.4-5.0) gm/dl Urine Color Urine Appearance (Clear) Urine pH (4.5-7.5) Ur Specific Pollard (1.000-1.030) Urine Protein (Negative) Urine Glucose (UA) (Negative) Urine Ketones (Negative) Urine Blood (Negative) Urine Nitrite (Negative) Urine Bilirubin (Negative) Urine Urobilinogen (Negative) Ur Leukocyte Esterase (Negative) Hepatitis C Ab Screen (Neg) Blood Type Antibody Screen 06/24/18 06/24/18 06/24/18 Range/Units 14:11 14:11 14:11 WBC (4.8-10.8) K/uL RBC (4.2-5.4) M/uL Hgb (12.0-16.0) g/dL Hct (37-47) % MCV (80-100) fL MCH (25-34) pg MCHC (32-36) g/dL RDW Std Deviation (36.4-46.3) fL RDW Coeff of Yari (11.5-14.5) % Plt Count (130-400) K/uL MPV (7.4-10.4) fL Immature Gran % (Auto) % Neut % (Auto) % Lymph % (Auto) % [place] % (Auto) % Eos % (Auto) % Baso % (Auto) % Immature Gran # (Auto) (0.00-0.02) K/uL Neut # (Auto) (1.4-6.5) K/uL Lymph # (Auto) (1.2-3.4) K/uL [place] # (Auto) (0.11-0.59) K/uL Eos # (Auto) (0-0.5) K/uL Baso # (Auto) (0-0.2) K/uL PT (9.0-12.0) Seconds INR (0.9-1.1) APTT (21.0-31.0) Seconds PTT Ratio Sodium (136-145) mmol/L Potassium (3.5-5.1) mmol/L Chloride (98-107) mmol/L Carbon Dioxide (21-32) mmol/L Anion Gap (3-11) BUN (7-18) mg/dl Creatinine (0.6-1.2) mg/dl Est Cr Clr Drug Dosing ml/min Est GFR ( Amer) Est GFR (Non-Af Amer) BUN/Creatinine Ratio (10-20) Glucose (70-99) mg/dl Estimat Average Glucose 131 mg/dl Hemoglobin A1c 6.2 H (4.5-5.6) % Calcium (8.5-10.1) mg/dl Total Bilirubin (0.2-1) mg/dl Direct Bilirubin (0-0.2) mg/dl AST (15-37) U/L ALT (12-78) U/L Alkaline Phosphatase (45-117) U/L Total Protein (6.4-8.2) gm/dl Albumin (3.4-5.0) gm/dl Urine Color Yellow Urine Appearance Clear (Clear) Urine pH 5.0 (4.5-7.5) Ur Specific Pollard 1.029 (1.000-1.030) Urine Protein Negative (Negative) Urine Glucose (UA) Negative (Negative) Urine Ketones Negative (Negative) Urine Blood Negative (Negative) Urine Nitrite Negative (Negative) Urine Bilirubin Negative (Negative) Urine Urobilinogen Negative (Negative) Ur Leukocyte Esterase Negative (Negative) Hepatitis C Ab Screen (Neg) Blood Type O Negative Antibody Screen NEGATIVE 07/25/18 07/25/18 07/25/18 Range/Units 05:17 05:17 05:17 WBC 14.81 H (4.8-10.8) K/uL RBC 4.12 L (4.2-5.4) M/uL Hgb 10.4 L (12.0-16.0) g/dL Hct 32.4 L (37-47) % MCV 78.6 L (80-100) fL MCH 25.2 (25-34) pg MCHC 32.1 (32-36) g/dL RDW Std Deviation 44.6 (36.4-46.3) fL RDW Coeff of Yari 15.5 H (11.5-14.5) % Plt Count 414 H (130-400) K/uL MPV 9.4 (7.4-10.4) fL Immature Gran % (Auto) % Neut % (Auto) % Lymph % (Auto) % [place] % (Auto) % Eos % (Auto) % Baso % (Auto) % Immature Gran # (Auto) (0.00-0.02) K/uL Neut # (Auto) (1.4-6.5) K/uL Lymph # (Auto) (1.2-3.4) K/uL [place] # (Auto) (0.11-0.59) K/uL Eos # (Auto) (0-0.5) K/uL Baso # (Auto) (0-0.2) K/uL PT (9.0-12.0) Seconds INR (0.9-1.1) APTT (21.0-31.0) Seconds PTT Ratio Sodium 139 (136-145) mmol/L Potassium 4.5 (3.5-5.1) mmol/L Chloride 106 (98-107) mmol/L Carbon Dioxide 27 (21-32) mmol/L Anion Gap 6.0 (3-11) BUN 17 (7-18) mg/dl Creatinine 0.77 (0.6-1.2) mg/dl Est Cr Clr Drug Dosing 86.3 ml/min Est GFR ( Amer) 97.3 Est GFR (Non-Af Amer) 83.9 BUN/Creatinine Ratio 22.0 H (10-20) Glucose 163 H (70-99) mg/dl Estimat Average Glucose mg/dl Hemoglobin A1c (4.5-5.6) % Calcium 9.0 (8.5-10.1) mg/dl Total Bilirubin 0.2 (0.2-1) mg/dl Direct Bilirubin < 0.1 (0-0.2) mg/dl AST 29 (15-37) U/L ALT 52 (12-78) U/L Alkaline Phosphatase 128 H (45-117) U/L Total Protein 7.3 (6.4-8.2) gm/dl Albumin 3.1 L (3.4-5.0) gm/dl Urine Color Urine Appearance (Clear) Urine pH (4.5-7.5) Ur Specific Pollard (1.000-1.030) Urine Protein (Negative) Urine Glucose (UA) (Negative) Urine Ketones (Negative) Urine Blood (Negative) Urine Nitrite (Negative) Urine Bilirubin (Negative) Urine Urobilinogen (Negative) Ur Leukocyte Esterase (Negative) Hepatitis C Ab Screen Neg (Neg) Blood Type Antibody Screen Total Time Total Time Spent Total Time Spent (In Minutes): 20 Discharge Plan Discharge Items Patient Disposition: Home - Self-Care Reason For Visit: Osteoarthritis, Right Knee Discharge Diagnosis: Right knee osteoarthritis Discharge Goals: Decrease discomfort and Improve function Activity: Per 'Additional Instructions' section Non-emergency contact: Surgeon Call non-emergency contact if: you have any medication questions, your pain is not controlled, your pain is worsening, your pain is concerning for you, you have a fever, your temperature is above 101, your wound has increased redness and your wound has increased drainage Follow-up/Referrals: Alex Negro V., [Primary Care Provider] - Diet: Regular Addtl Provider Instructions: ACTIVITY RECOMMENDATIONS: SELF CARE INSTRUCTIONS AFTER TOTAL KNEE REPLACEMENT A. You may need to continue a physical therapy program after discharge from the hospital. There are several options available to you. Your doctor will assist you in selecting the best one for you. 1. An out-patient facility 2 to 3 times a week for therapy or home therapy. 2. Continue working on all exercises taught to you in the hospital. Your goals should be to increase bending of your knee to 90 degrees and beyond and to fully straighten your knee. B. You may progress at your own pace from walking with a walker or crutches to a cane; then to no assistive devices. C. Make walking a part of your daily routine. Be up as much as comfortable with rest periods throughout the day. Rest with leg elevation is very important. Use the ice wrap frequently for the first 3-4 weeks. D. There are no restrictions on activities. You may ride in a car, shop, participate in rail splitter and all social activities. E. Wear the long elastic stockings (JO ANN hose) 20 hours a day for 2 weeks after surgery. They can be removed several times a day for laundering and for a bath. F. You may shower, no tub baths until cleared by your doctor. SPECIAL CARE INSTRUCTIONS: VERY IMPORTANT TO READ AND REVIEW A. There are a few signs you need to watch for after you are home. Call [facility] if you notice any of the followin. Increased severe knee pain. Some pain is expected especially when you exercise. 2. Increased swelling in your leg or knee; pain or swelling of the calf muscle in either lower leg. 3. Any fluid drainage from the incision. 4. Shortness of breath or chest pain. B. Please call [facility] at if you have any concerns or questions about your operation or recovery. The doctor or his nurse will return your call promptly. C. You must take antibiotics before dental work, bladder, bowel or other surgery. Your doctor will provide you with a permanent care to carry describing this precaution. IMPORTANT: * REMEMBER TO TAKE ASPIRIN, 81 MG, TWICE DAILY FOR 4 WEEKS UNLESS OTHERWISE DIRECTED. THIS IS YOUR BLOOD THINNER. * HIGH RISK PATIENTS MAY BE PRESCRIBED A STRONGER BLOOD THINNER. THIS WILL BE PROVIDED AT DISCHARGE. * CALL IF INCREASED PAIN, REDNESS, DRAINAGE OR FEVER GREATER THAT 101. * WEAR JO ANN HOSE 20 HOURS PER DAY FOR 2 WEEKS. * YOU MAY HAVE A LARGE BAND-AID LIKE DRESSING (SILVERON). THIS WILL REMAIN ON YOUR INCISION FOR 7 DAYS, THEN CAN BE REMOVED. IF INCISION IS LEAKING THROUGH DRESSING, CALL THE OFFICE . FOLLOW UP VISIT: If appointment is not already scheduled: Please call [facility] to make a follow-up appointment for 2 weeks after your surgery at . Prescriptions: New acetaminophen [Tylenol Extra Strength] 500 mg Tablet 1,000 mg PO Q8 Qty: 60 RF: 0 Xarelto 10 mg Tablet 10 mg PO DAILY Qty: 28 RF: 0 oxycodone [OxyContin] 10 mg Tablet,Oral Only,Ext.Rel.12 Hr 10 mg PO Q12H Qty: 10 RF: 0 oxycodone 5 mg Tablet 5 - 10 mg PO .Q4H-6H PRN (Reason: pain) Qty: 30 RF: 0 cefadroxil 500 mg capsule 500 mg PO BID Qty: 28 RF: 0 Continued citalopram 40 mg Tablet 20 mg PO QAM RF: 0 rosuvastatin 20 mg Tablet 20 mg PO QPM RF: 0 gabapentin 400 mg Capsule 400 mg PO TID RF: 0 Discontinued diclofenac sodium 50 mg Tablet,Delayed Release (Dr/Ec) 50 mg PO TID PRN (Reason: Pain) RF: 0 aspirin [Aspir-81] 81 mg Tablet,Delayed Release (Dr/Ec) 81 mg PO QAM RF: 0 Stand-Alone Forms: [facility], Opioid Pain Management [facility]/Other Patient Handouts: A1C, Surgery Prevent DVT After, Prediabetes, Replacement Knee Home After, Replacement Knee First Month Discharge Orders: Discharge Order (Routine); Ordered 07/28/18 Ordered By: Manolo Aguilar Admission Data Admit Date/Time: 07/24/18 11:05 Attending Provider: Rudi Calderon Admit Provider: Rudi Calderon Primary Care Provider: Alex Negro V. Service: Surgical Services Other Interventions: Discharge Summary Assessment (RN) Last Done: 07/28/18 09:01 DC Date/Time DO NOT enter until pt leaves facility: 07/28/18 15:56
== END 2018-07-28 15:56 | disposition home or self-care (01) | DRG 470 ==
LOC: ASU 05:10 → 3E 11:05